=== PATIENT | male | born 1960 | race Caucasian/White ===

== ENCOUNTER → 2017-05-01 | Outpatient (CLI) | payer OTHER ==
[~2017-05-01] MED LIST: ALTACE10 MG PO; ANTIVERT GENERI25 MG PO; BACLOFEN10 MG PO; CELEBREX200 MG PO; CHEWABLE ASPIRI81 MG PO; CRESTOR5 MG PO; CYCLOBENZAPRINE5 MG PO; CYMBALTA60 MG PO; DICLOFENAC SOD75 MG PO; FLUTICASON0.05 MG/AC; GABAPENTIN100 M1 PO; KEFLEX 500MG.500 MG PO; LASIX20 MG PO; LUNESTA2 MG PO; MIRALAX17 GM/PACK PO; MULTI VITAMINS1 TAB PO; NEXIUM40 MG PO; PERCOCET 5/3251 EACH PO; PHENERGAN 25MG.25 M1 PO; PREDNISONE 20MG20 MG PO; TORSEMIDE20 M1 PO; TRAZODONE 50MG50 MG PO; ULTRAM ER100 MG PO; XALATAN 0.005%2.5 M1
--- NOTE | 2017-05-01 17:08 | RADIOLOGY REPORT PS360 ---
KNEE-3 VIEWS-RT HISTORY: RT KNEE PAIN ORDERING PHYSICIAN: Brendan Alcaraz MD PATIENT AGE: 56 years COMPARISON: 01/17/2011 FINDINGS: No fracture or dislocation. No lytic or blastic change. Normal mineralization. Hypertrophic changes are present along the inferior aspect of the patella from an old fracture. There are mild osteoarthritic changes of the medial compartment and patellofemoral joint. No other significant findings IMPRESSION: 1. Mild osteoarthritic change. 2. Old inferior patellar fracture
== END ==
LOC: RAD 15:59
DX: M25.561 Pain in right knee (principal)